=== PATIENT | female | born 1935 | race Hispanic/Latino ===

== ENCOUNTER 2017-04-16 07:44 | Inpatient (IN) | payer BC, MEDICARE ==
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
[2017-04-16 08:24] LABS: BASO # 0.02 K/mm3 (0.0-2.0); BASO % 0.4 % (0.0-3.0); EOS # 0.1 (0.0-0.7); EOS % 2.5 % (1.5-5.0); GRAN # 3.86 (1.4-6.5); HEMATOCRIT 34.7 % (36.0-48.0); LYMPH # 1.2 (1.2-3.4); LYMPH % 21.1 % (22.0-35.0); MEAN CELL VOLUME 88.5 fl (80.0-105.0); MEAN CORPUSCULAR HEMOGLOBIN 30.9 pg (25.0-35.0); MEAN CORPUSCULAR HGB CONC 34.9 g/dl (31.0-37.0); MEAN PLATELET VOLUME 11.6 fl (7.0-11.0); MONO # 0.4 (0.1-0.6); RED CELL DISTRIBUTION WIDTH 12.4 % (11.5-14.5); WHITE BLOOD COUNT 5.6 10^3/ul (4.5-11.0)
[2017-04-16 08:27] LABS: ALB/GLOB RATIO 1.3 (1.1-1.8); ALKALINE PHOSPHATASE 70 U/L (38-126); ALT/SGPT 24 U/L (7-56); AST/SGOT 23 U/L (14-36); BILIRUBIN,TOTAL 0.7 mg/dL (0.2-1.3); BLOOD UREA NITROGEN 17 mg/dL (7-21); CALCIUM 9.7 mg/dL (8.4-10.5); CARBON DIOXIDE 27 mmol/L (21-33); CHLORIDE 104 mmol/L (98-107); GFR AFRICAN-AMERICAN > 60; GLUCOSE,RANDOM 152 mg/dL (70-110); POTASSIUM 3.5 mmol/L (3.6-5.0); SODIUM 141 mmol/L (132-148); TOTAL PROTEIN 7.7 g/dL (5.8-8.3)
[2017-04-16 08:33] LABS: INR 1.11 (0.93-1.08); PARTIAL THROMBOPLASTIN TIME 25.4 Seconds (25.1-36.5)
--- NOTE | 2017-04-16 09:53 | RAD ---
PROCEDURE: Pelvis, right hip HISTORY: fall COMPARISON: April 16, 2017. TECHNIQUE: Standard protocol for this study/examination. FINDINGS: Comminuted fracture through the greater and lesser trochanters and intertrochanteric region. Preservation of femoral and acetabular relationship. No pelvic ring abnormalities. IMPRESSION: Acute, comminuted intratrochanteric fracture proximal right femur.
--- NOTE | 2017-04-16 09:54 | RAD ---
PROCEDURE: Right femur HISTORY: fall COMPARISON: April 16, 2017. TECHNIQUE: Standard protocol for this study/examination. FINDINGS: Comminuted intertrochanteric fracture. Possible avulsion fracture of the greater trochanter. Preserved femoral acetabular relationship. No distal femoral abnormalities. IMPRESSION: Acute and comminuted intratrochanteric fracture proximal right femur
--- NOTE | 2017-04-16 09:55 | RAD ---
PROCEDURE: CHEST RADIOGRAPH, 1 VIEW HISTORY: preop COMPARISON: 04/06/2013. FINDINGS: LUNGS: Clear. PLEURA: No pneumothorax or pleural fluid seen. CARDIOVASCULAR: No radiographic findings to suggest acute or significant cardiovascular disease. OSSEOUS STRUCTURES: No significant abnormalities. VISUALIZED UPPER ABDOMEN: Normal. OTHER FINDINGS: None. IMPRESSION: No active disease. No acute/significant interval changes.
[2017-04-16 15:38] VITALS: BMI 23.7
[2017-04-16] MEDS ORDERED: Pneumococcal 23-Valent Vaccine IM ONE (15:38)
[2017-04-16] MEDS ORDERED: Influenza Vaccine 60 mcg/0.5 mL SYR (4YR UP) IM ONE (15:38)
[2017-04-16] MEDS ORDERED: Potassium Chloride 20 mEq ER Tab PO ONE (17:04)
--- NOTE | 2017-04-17 00:14 | CARD ---
APPROVED REPORT EKG Measurement Heart [id number] <Conclusion> Normal sinus rhythm Nonspecific ST and T wave abnormality Abnormal ECG
[2017-04-17 02:23] LABS: PH,URINE 6.5 (4.7-8.0); URINE BILIRUBIN NEGATIVE (NEGATIVE); URINE BLOOD NEGATIVE (NEGATIVE); URINE GLUCOSE (UA) 100 mg/dL (NEGATIVE); URINE KETONE 15 mg/dL (NEGATIVE); URINE LEUKOCYTE ESTERASE NEGATIVE Leu/uL (NEGATIVE); URINE PROTEIN TRACE mg/dL (<30 mg/dL)
[2017-04-17 02:26] LABS: URINE APPEARANCE CLEAR (CLEAR); URINE COLOR YELLOW (YELLOW)
--- NOTE | 2017-04-17 02:30 | CON ---
DATE: ORTHOPEDIC CONSULTATION LOCATION: Room #568, bed #1. HISTORY OF PRESENT ILLNESS: An 81-year-old female, slipped and fell today and sustained a displaced base of the neck high intertrochanteric fracture of her right hip. She had no loss of consciousness. Dr. Alejandro and Dr. Domínguez cleared the patient as well as Dr. Rey, and we can perform pinning of her right intertrochanteric fracture with Affixus nail tomorrow. This will help to stabilize the base of the neck fracture better than the standard peritrochanteric fernando. I explained everything to the family and the nephew, who is here, and we will perform the surgery at 7:30 on 04/17/2017 to get her moving. FINAL DIAGNOSIS: Displaced comminuted high intertrochanteric fracture of the right hip. Derek Kraus DO
[2017-04-17 02:37] LABS: URINE EPITHELIAL CELLS 0 - 2 /hpf (0-5); URINE RBC 0 - 2 /hpf (0-2); URINE WBC 0 - 2 /hpf (0-6)
--- NOTE | 2017-04-17 03:24 | CON ---
DATE: 04/16/2017 SERVICE: Cardiology. REASON FOR CONSULTATION: Preop evaluation, risk stratification for OR internal fixation for right hip fracture, status post fall. BRIEF CLINICAL HISTORY: This is an 81-year-old female with past medical history significant for hypertension, diabetes, and dementia, who fell down, had mechanical fall and sustained fracture of the hip, will require OR internal fixation. The patient denies any chest pain, shortness of breath, or any palpitation. PAST MEDICAL HISTORY: Significant for dementia, forgetfulness, questionable history of hypertension, diabetes, also history of gastroesophageal reflux, history of asymptomatic gallstone, history of stone in the right ureter in the past, admitted after mechanical fall and fracture of the right hip requiring OR internal fixation. Previous cardiac workup as follows: The patient had a stress test on 04/01/2013, which reported essentially normal, ejection fraction 63%. The patient had also echocardiography on 04/01/2013, which reported tricuspid regurgitation, mild tricuspid regurgitation, right ventricular systolic pressure of 30 to 40 mmHg, left ventricular ejection fraction 50% to 55%, mild-to moderate hypokinesis in the inferior wall , Doppler consistent with grade 1 diastolic dysfunction. CURRENT MEDICATION: It was reported, no medication. In the previous chart, it is mentioned, the patient was taking metoprolol and aspirin. ALLERGIES: NO KNOWN DRUG ALLERGIES. SOCIAL HISTORY: Denies any history of smoking, tobacco, or alcohol abuse. REVIEW OF SYSTEMS: As per HPI. PHYSICAL EXAMINATION: As follows; VITAL SIGNS: Temperature afebrile, heart rate 73, and blood pressure 135/65. HEENT: PERRLA. Extraocular muscles intact. NECK: Supple. No carotid bruits or thyromegaly. CHEST: Clear to auscultation. HEART: S1 and S2 regular. ABDOMEN: Soft. EXTREMITIES: Clubbing and cyanosis negative. LABORATORY DATA: Blood workup as follows: WBC 5.6, hemoglobin 12.1, hematocrit 34.7, and platelet count 152. Chemistry showed sodium 141, potassium 3.5, chloride 104, carbon dioxide 23, anion gap of 17, BUN 14, creatinine 0.7. EKG done this morning does show normal sinus, nonspecific ST-T changes noted. IMPRESSION: Status post fall, status post fracture of hip requiring open reduction internal fixation; questionable history of hypertension; questionable history of diabetic, but apparently not on medication, blood sugar elevated, is a diabetic. The patient has dementia. Previous cardiac noninvasive workup was negative, stress test was negative on 04/01/2013, and echo also showed preserved left ventricular function. No significant valvular stenosis noted. In view of above risk/benefit ratio, it is in interest of the patient to have surgery done for early mobilization. The patient will get the benefit from early mobilization. No evidence of acute ischemia, no evidence of congestive heart failure, no evidence of arrhythmia, so no absolute contraindication for surgery, like as I mentioned, the patient will get the benefit from early mobilization and subsequent surgery. We will monitor heart rate and blood pressure, supplement electrolytes, and we will put low-dose beta noel and do the lipid profile, TSH, and hemoglobin A1c. Thank you, Dr. Rey, for providing me the opportunity in taking care of the patient, Stephanie Osorio. We will follow with you. Trey Alejandro MD MTDTrevon
[2017-04-17 06:00] LABS: BASO # 0.01 K/mm3 (0.0-2.0); BASO % 0.1 % (0.0-3.0); GRAN # 7.68 (1.4-6.5); GRAN % 84.6 % (50.0-68.0); HEMATOCRIT 30.7 % (36.0-48.0); LYMPH # 0.7 (1.2-3.4); LYMPH % 7.2 % (22.0-35.0); MEAN CELL VOLUME 88.7 fl (80.0-105.0); MEAN CORPUSCULAR HEMOGLOBIN 30.1 pg (25.0-35.0); MEAN CORPUSCULAR HGB CONC 33.9 g/dl (31.0-37.0); MEAN PLATELET VOLUME 11.8 fl (7.0-11.0); MONO # 0.7 (0.1-0.6); MONO % 8.1 % (1.0-6.0); RED CELL DISTRIBUTION WIDTH 12.5 % (11.5-14.5); WHITE BLOOD COUNT 9.1 10^3/ul (4.5-11.0)
[2017-04-17 06:59] LABS: ALB/GLOB RATIO 1.2 (1.1-1.8); ALKALINE PHOSPHATASE 56 U/L (38-126); ALT/SGPT 23 U/L (7-56); AST/SGOT 25 U/L (14-36); BLOOD UREA NITROGEN 15 mg/dL (7-21); CALCIUM 9.5 mg/dL (8.4-10.5); CARBON DIOXIDE 28 mmol/L (21-33); CHLORIDE 106 mmol/L (98-107); CHOLESTEROL 136 mg/dL (130-200); GFR AFRICAN-AMERICAN > 60; GLUCOSE,RANDOM 191 mg/dL (70-110); PHOSPHOROUS 3.2 mg/dL (2.5-4.5); POTASSIUM 4.3 mmol/L (3.6-5.0); SODIUM 142 mmol/L (132-148); TOTAL PROTEIN 6.8 g/dL (5.8-8.3)
[2017-04-17] MEDS ORDERED: Bupivacaine 0.5% Inj(30mL) ONE (07:31)
[2017-04-17] MEDS ORDERED: Phenylephrine 10 mg/ml Inj ONE (07:41)
[2017-04-17] MEDS ORDERED: Rocuronium 10 mg/ml (5 ml) ONE (07:41)
[2017-04-17] MEDS ORDERED: Propofol 10 mg/ml Inj (20 ML) ONE (07:41)
[2017-04-17] MEDS ORDERED: ePHEDrine 50 mg/ml Inj ONE (08:11)
[2017-04-17] MEDS ORDERED: Neostigmine Methylsulfate 3mg/3ml Syringe IV ONE (08:57)
[2017-04-17] MEDS ORDERED: Oxycodone/Acetaminophen 5/325 mg Tab PO PRN ×2 (09:26)
[2017-04-17] MEDS ORDERED: HYDROmorphone 0.5 mg/0.5 ml ISec IVP PRN (09:42)
[2017-04-17] MEDS ORDERED: Lactated Ringer's 1,000 ML IV SCH (09:45)
[2017-04-17] MEDS ORDERED: HYDROmorphone 0.5 mg/0.5 ml ISec ONE ×2 (10:00→10:42)
[2017-04-17] MEDS ORDERED: Enoxaparin 30 mg Syringe SC SCH (10:00)
[2017-04-17] MEDS ORDERED: HYDROmorphone 0.5 mg/0.5 ml ISec IVP ONE ×2 (10:00→10:40)
[2017-04-17 10:22] LABS: BLOOD UREA NITROGEN 15 mg/dL (7-21); CALCIUM 9.2 mg/dL (8.4-10.5); CARBON DIOXIDE 25 mmol/L (21-33); CHLORIDE 106 mmol/L (98-107); GFR AFRICAN-AMERICAN > 60; GLUCOSE,RANDOM 187 mg/dL (70-110); POTASSIUM 4.2 mmol/L (3.6-5.0); SODIUM 143 mmol/L (132-148)
--- NOTE | 2017-04-17 11:17 | RAD ---
PROCEDURE: Fluoroscopy up to 1 hour HISTORY: ORIF RT HIP COMPARISON: TECHNIQUE: Fluoroscopy was provided in the operating room. 56 seconds of fluoro time. Five images were submitted FINDINGS: The study shows placement of a compression screw and fernando in the right hip. There is anatomic alignment IMPRESSION: As above
--- NOTE | 2017-04-17 13:19 | PN ---
DATE: 04/17/2017 REASON FOR CONSULTATION AND FOLLOWUP: Preoperative evaluation, risk stratification for internal fixation of right hip fracture, status post fall. SUBJECTIVE: The patient on way to the OR, was seen in the holding area. Denies any chest pain, shortness of breath, or any palpitation. Nephew is at the bedside. OBJECTIVE/PHYSICAL EXAMINATION: As follows: GENERAL: Not in apparent distress. VITAL SIGNS: Temperature is afebrile, heart rate is 82, and blood pressure is 124/80. HEENT: PERRLA. Extraocular muscles are intact. NECK: Supple. No carotid bruits or thyromegaly. CHEST: Clear to auscultation. HEART: S1 and S2 regular. ABDOMEN: Soft. EXTREMITIES: Clubbing and cyanosis negative. LABORATORY DATA: Blood workup: WBC of 9.1, hemoglobin of 10.4, hematocrit of 30.7, and platelet count of 142. Chemistry shows sodium of 142, potassium of 4.2, chloride of 106, carbon dioxide of 28, anion gap of 12, BUN of 15, and creatinine of 0.8. Random sugar of 191, calcium of 9.5, phosphorus of 3.2, and magnesium of 2. Total bilirubin of 1. AST of 25, ALT of 23, and alkaline phosphates of 56, TSH of 3.33. Triglycerides of 55, cholesterol of 136, LDL of 78, and HDL of 42. IMPRESSION: Status post fall when the patient was sweeping the floor and picking up the leaf outside the home, fell down and sustained right hip fracture. History as mentioned history of forgetfulness, history of hypertension, diabetes, history of gastroesophageal reflux, and history of asymptomatic gallstone. Electrocardiogram probably benign and no evidence of any arrhythmia, congestive heart failure, or angina. The patient is cleared from Cardiology point of view. The patient had normal stress test on 04/01/2013, which was essentially normal ejection fraction of 63%. The patient also had echocardiography four years ago on 04/01/2013, reported tricuspid regurgitation, mitral regurgitation, and right ventricular systolic pressure 30 to 40 mmHg. RECOMMENDATIONS: The patient is clear to go from cardiac point of view. Continue preoperative beta-noel. We will see postop and we will monitor H and H and lab in the morning. We will get an echo to assess LV function and fluid status and manage the fluid. Continue postop enoxaparin for DVT prophylaxis. We will follow with you. We will check magnesium and phosphatase tomorrow. Thank you Dr. Kraus for providing us the opportunity in taking care of the patient, Jo. Trey Alejandro MD
[2017-04-17] MEDS ORDERED: ceFAZolin 1 gm in NS 1 GM/100 ML BAG IVPB SCH ×2 (16:18→20:27)
--- NOTE | 2017-04-17 18:32 | HP ---
HISTORY OF PRESENT ILLNESS: Stephanie Osorio was admitted to the hospital on 04/16/2017 for a fall at home. She sustained a fracture of her right hip, having a base of the neck fracture, displaced and comminuted that needs open reduction internal fixation. She was admitted through the emergency room. She has no significant medical history. She was cleared medically by Dr. Alejandro and Dr. Rey. Hematologic state is fine; hemoglobin is 12, hematocrit 34.7, white count is 5.6. She ambulates at home, lives with nephew, and has a walker. The heart and lungs are within normal limits. No abdominal pain. No signs of cancer. No dysuria. No infections. and Dr. Alejandro saw the patient and cleared her for surgery, and Dr. Rey also knows about the patient and said she will do fine and she could have her surgery. FINAL DIAGNOSIS: Displaced fracture, right hip. Derek Kraus DO MTDD
--- NOTE | 2017-04-17 21:11 | OP ---
PROCEDURE DATE: 04/17/2017 PREOPERATIVE DIAGNOSIS: Comminuted high intertrochanteric basilar neck fracture of the right hip with displacements. POSTOPERATIVE DIAGNOSIS: Comminuted high intertrochanteric basilar neck fracture of the right hip with displacements. PROCEDURE: Open reduction and internal fixation with a [employer] Affixus nail, utilizing a nail that was 125 mm angled, 180 mm length and 11 mm wide, and the lag screw was 90 mm long and the hip screw was antirotation screw was 85 mm long and one locking screw distally 36 mm x 6 mm. SURGEON: Dr. Derek Kraus. PARQUETRY LAYER SURGEON: Arnel. TYPE OF ANESTHESIA: General endotracheal tube. DESCRIPTION OF PROCEDURE: The patient was taken to the OR, right hip prepped and draped in a sterile fashion at the fracture table. Gentle traction was done to reduce the fracture on both the AP and lateral projection. Then we decided to use the Affixus nail from [employer] as this was unstable fracture and there is a chance that the femoral head could rotate if I did not have an antirotation screw, so I decided to have an antirotation screw. Once the patient was prepped and draped, we inserted guidewire to the greater trochanter distally to go into shaft, over reamed the proximal femur with a 16 mm reamer for 7 cm, then inserted the 180 mm long IM nail from [employer] Affixus nail that was set at 125 degree angle. Once this was done and the nail was inserted, with the help of the jig, we could put a guidewire into the femoral head and neck in line for the proposed lag screw and the antirotation screw. We put in the lag screw of 190 mm long after we reamed it with a drill to go subchondral, then put in the antirotation screw and locked the nail proximally. I took the hardware off and then locked it distally with a 6 mm wide, 36 mm long screw dynamic fixation distally. X-ray showed good position of the hardware and the fracture was reduced prior to locking it distally. Three wounds were closed in layers, 0-Vicryl for the deep layer, 2-0 Vicryl subcutaneous tissue, and 3-0 nylon for the skin. The patient was taken to the recovery room in good condition. Derek Kraus DO
--- NOTE | 2017-04-18 00:47 | PN ---
DATE: 04/17/2017 SUBJECTIVE: The patient was seen this Sunday, late evening, in room 572, bed #1 with her niece at the bedside. Having been once to medical followup for sometime, she seems quite comfortable, recognizes me, and is in good spirits. Hip procedure was done earlier today by Dr. Derek Kraus. The patient is planning to be in the hospital for an additional 2 days or so and then go to [facility]. PHYSICAL EXAMINATION: GENERAL: She is awake and alert, answers appropriately. Her exam is essentially unremarkable. LUNGS: Show good aeration. ABDOMEN: Soft. EXTREMITIES: Show no edema. IMPRESSION: Hip fracture, status post fall at home. PLAN: Continue current regimen per orthopedist. Dr. Reed will see the patient again tomorrow. We will follow the lead of orthopedist regarding followup care. Deshaun Rey MD
[2017-04-18 08:14] LABS: HEMATOCRIT 24.8 % (36.0-48.0); MEAN CELL VOLUME 89.9 fl (80.0-105.0); MEAN CORPUSCULAR HEMOGLOBIN 30.1 pg (25.0-35.0); MEAN CORPUSCULAR HGB CONC 33.5 g/dl (31.0-37.0); RED CELL DISTRIBUTION WIDTH 12.7 % (11.5-14.5); WHITE BLOOD COUNT 8.1 10^3/ul (4.5-11.0)
[2017-04-18 08:24] LABS: BLOOD UREA NITROGEN 16 mg/dL (7-21); CALCIUM 9.2 mg/dL (8.4-10.5); CARBON DIOXIDE 28 mmol/L (21-33); CHLORIDE 106 mmol/L (98-107); GFR AFRICAN-AMERICAN > 60; GLUCOSE,RANDOM 148 mg/dL (70-110); MAGNESIUM 2.1 mg/dL (1.7-2.2); PHOSPHOROUS 2.6 mg/dL (2.5-4.5); POTASSIUM 4.3 mmol/L (3.6-5.0); SODIUM 141 mmol/L (132-148)
[2017-04-18] MEDS: Enoxaparin 30 mg Syringe SC SCH (09:45)
--- NOTE | 2017-04-18 14:37 | PN ---
DATE: 04/18/2017 REASON FOR CONSULTATION AND FOLLOWUP: Preoperative evaluation, now postoperative followup, status post OR internal fixation right hip. SUBJECTIVE: The patient denies any chest pain, shortness of breath, or any palpitation. Being changed the bed. PHYSICAL EXAMINATION: GENERAL: Not in apparent distress, lying flat in the bed. VITAL SIGNS: Temperature afebrile, heart rate 85, and blood pressure 115/88. HEENT: PERRLA. Extraocular muscles intact. NECK: Supple. No carotid bruits or thyromegaly. CHEST: Clear to auscultation. HEART: S1 and S2, regular. ABDOMEN: Soft. EXTREMITIES: Clubbing and cyanosis negative. LABORATORY DATA: WBC 8.1, hemoglobin 8.3, hematocrit 24.8, and platelet count 123. Chemistry shows sodium 140, potassium 4.2, chloride 106, carbon dioxide 28, anion gap of 11, BUN 16, and creatinine 0.8. IMPRESSION: Postoperative anemia, status post fall, status post fracture of the right hip, status post open reduction and internal fixation. RECOMMENDATION: Continue preoperative beta-noel. We will give 1 unit of packed RBC. We will get echo to assess LV function. Enoxaparin is started postop to prevent DVT. We will follow with you. Repeat H and H tomorrow. Thank you Dr. Kraus/Dr. Rey for providing us the opportunity in taking care of the patient, Stephanie Osorio. Trey Alejandro MD
--- NOTE | 2017-04-18 17:41 | CARD ---
APPROVED REPORT EXAM: Two-dimensional and M-mode echocardiogram with Doppler and color Doppler. INDICATION POST 0P/LV FX 2D DIMENSIONS Left Atrium (2D)3.8 (1.6-4.0cm)IVSd1.1 (0.7-1.1cm) LVDd4.6 (3.9-5.9cm)PWd1.1 (0.7-1.1cm) LVDs3.0 (2.5-4.0cm)FS (%) 34.8 % LVEF (%)64.1 (>50%) M-Mode DIMENSIONS Aortic Root2.40 (2.2-3.7cm)Aortic Cusp Exc.1.80 (1.5-2.0cm) Aortic Valve AoV Peak Pjmpuivp616.0cm/Cody Peak GR.7mmHg Mitral Valve MV E Ojkgnxlf35.5cm/sMV A Oqovqnmr132.0cm/sE/A ratio0.7 TDI E/Lateral E'0.0E/Medial E'0.0 Tricuspid Valve TR Peak Yclpwqpv498yq/sRAP [id number] Peak Gr.37mmHg [id number] LEFT VENTRICLE The left ventricle is normal size. There is normal left ventricular wall thickness. The left ventricular function is normal.EF-60-65% There is normal LV segmental wall motion. Transmitral Doppler flow pattern is Grade III-reversible restrictive diastolic dysfunction. No left ventricle thrombus noted on this study. There is no ventricular septal defect visualized. There is no left ventricular aneurysm. There is no mass noted in the left ventricle. RIGHT VENTRICLE The right ventricle is normal size. There is normal right ventricular wall thickness. The right ventricular systolic function is normal. ATRIA The left atrium is moderately dilated. The right atrium size is normal. The interatrial septum is intact with no evidence for an atrial septal defect. AORTIC VALVE The aortic valve is thickened but opens well. There is trace aortic regurgitation. There is no aortic valvular stenosis. There is no aortic valvular vegetation. MITRAL VALVE The mitral valve is calcified but opens well. Mitral regurgitation is moderate. There is no mitral valve stenosis. There is no evidence of mitral valve prolapse. TRICUSPID VALVE The tricuspid valve leaflets are thickened , but open well. There is moderate tricuspid regurgitation.RVSP-47 mmof Hg. There is no tricuspid valve stenosis. There is no tricuspid valve prolapse or vegetation. PULMONIC VALVE The pulmonic valve is borderline thickened. There is trace pulmonic valvular regurgitation. There is no pulmonic valvular stenosis. GREAT VESSELS The aortic root is normal in size. The ascending aorta is normal in size. The pulmonary artery is normal. The IVC is normal in size and collapses >50% with inspiration. PERICARDIAL EFFUSION There is no pleural effusion. There is no pericardial effusion. <Conclusion> There is normal left ventricular wall thickness. The left ventricular function is normal.EF-60-65% There is trace aortic regurgitation. Mitral regurgitation is moderate. There is moderate tricuspid regurgitation.RVSP-47 mmof Hg. There is trace pulmonic valvular regurgitation. The IVC is normal in size and collapses >50% with inspiration. There is no pericardial effusion.
[2017-04-19] MEDS: Sodium Chloride 0.45% 500 ML IV SCH ×2 (04:50→14:23)
[2017-04-19 06:59] LABS: HEMATOCRIT 27.7 % (36.0-48.0); MEAN CELL VOLUME 85.5 fl (80.0-105.0); MEAN CORPUSCULAR HEMOGLOBIN 28.7 pg (25.0-35.0); MEAN CORPUSCULAR HGB CONC 33.6 g/dl (31.0-37.0); MEAN PLATELET VOLUME 11.5 fl (7.0-11.0); RED CELL DISTRIBUTION WIDTH 14.8 % (11.5-14.5); WHITE BLOOD COUNT 8.4 10^3/ul (4.5-11.0)
[2017-04-19 07:46] LABS: BLOOD UREA NITROGEN 19 mg/dL (7-21); CALCIUM 9.1 mg/dL (8.4-10.5); CARBON DIOXIDE 27 mmol/L (21-33); CHLORIDE 104 mmol/L (98-107); GFR AFRICAN-AMERICAN > 60; GLUCOSE,RANDOM 187 mg/dL (70-110); MAGNESIUM 2.1 mg/dL (1.7-2.2); PHOSPHOROUS 1.9 mg/dL (2.5-4.5); POTASSIUM 3.7 mmol/L (3.6-5.0); SODIUM 140 mmol/L (132-148)
--- NOTE | 2017-04-19 08:24 | PN ---
DATE: 04/18/2017 UPDATED REPORT. SUBJECTIVE: First day postop, she is doing very well with the right hip fracture. She we will need 1 unit blood ordered by Dr. Alejandro for 8.3 hemoglobin. Wound is dry. We will going to get her up out of bed and encourage her to sit on a chair, ambulate with a walker and then she will have to go to subacute rehab for couple of weeks though she is in more independent, otherwise she is doing very well. We will follow the H and H. Derek Kraus DO
[2017-04-19] MEDS: Enoxaparin 30 mg Syringe SC SCH (10:49)
--- NOTE | 2017-04-19 22:15 | PN ---
DATE: 04/19/2017 LOCATION: The patient is in room 574, bed 1. REASON FOR CONSULTATION AND FOLLOWUP: Preop evaluation from cardiac point of view and postop followup, status post internal fixation of right hip. SUBJECTIVE: The patient is lying comfortably in bed without any chest pain, shortness of breath or palpitation. PHYSICAL EXAMINATION VITAL SIGNS: Blood pressure is 133/58, respirations 20, pulse 81, and temperature 98.7. HEENT: Head is normocephalic. Eyes; pupils are normal. Conjunctivae slightly pale. NECK: JVP is low. Carotids are equal. THORAX: AP diameter normal. LUNGS: Clear. CARDIOVASCULAR: S1 and S2. ABDOMEN: Soft and nontender. No organomegaly. EXTREMITIES: No clubbing. No cyanosis. LABORATORY DATA: WBC 8.4, hemoglobin 9.3, hematocrit 27.7, and platelets 116, yesterday platelet was 123. Sodium 140, potassium 3.7, BUN 19, creatinine 0.8, random sugar 145, calcium 9.1, phosphorus 1.9, and magnesium 2.1. DIAGNOSES: Postop anemia, status post fall, status post fracture of the right hip, status post open reduction and internal fixation. PLAN: The patient is on metoprolol 25 mg b.i.d. and Lovenox 30 mg subcutaneous daily. Clinically, cardiac status is stable. We will repeat CBC, SMA-7, magnesium and phosphorus in the morning and we will follow with you closely. Trey Domínguez MD
--- NOTE | 2017-04-20 00:05 | PN ---
DATE: 04/19/2017 SUBJECTIVE: The patient seen this evening in room 574, bed 1. She is in bed, comfortable, in no acute distress. She is fully aware that she is scheduled tomorrow for transfer to [facility] rehab facility where she will continued to be seen by Orthopedist, Dr. Derek Kraus. She is awake, alert, in good spirits, recognizes me, despite talkative and noticeably hard of hearing. Discontnue IV fluids. Discontinue IV and prepare for discharge to [facility]. Deshaun Rey MD MTDD
[2017-04-20 07:05] LABS: HEMATOCRIT 24.8 % (36.0-48.0); MEAN CELL VOLUME 84.9 fl (80.0-105.0); MEAN CORPUSCULAR HEMOGLOBIN 29.1 pg (25.0-35.0); MEAN CORPUSCULAR HGB CONC 34.3 g/dl (31.0-37.0); MEAN PLATELET VOLUME 11.8 fl (7.0-11.0); RED CELL DISTRIBUTION WIDTH 14.1 % (11.5-14.5); WHITE BLOOD COUNT 6.7 10^3/ul (4.5-11.0)
[2017-04-20 07:35] LABS: MAGNESIUM 1.9 mg/dL (1.7-2.2); PHOSPHOROUS 2.2 mg/dL (2.5-4.5)
[2017-04-20 09:22] LABS: BLOOD UREA NITROGEN 17 mg/dL (7-21); CALCIUM 8.8 mg/dL (8.4-10.5); CARBON DIOXIDE 25 mmol/L (21-33); CHLORIDE 105 mmol/L (98-107); GFR AFRICAN-AMERICAN > 60; GLUCOSE,RANDOM 125 mg/dL (70-110); POTASSIUM 3.7 mmol/L (3.6-5.0); SODIUM 138 mmol/L (132-148)
[2017-04-20] MEDS ORDERED: Potassium Phosphate 15 MMOLE in Dextrose 5% In Water 250 ML IVPB ONE (11:09)
[2017-04-20] MEDS: Enoxaparin 30 mg Syringe SC SCH (13:06)
--- NOTE | 2017-04-20 13:09 | PN ---
DATE: 04/20/2017 LOCATION: The patient is in room 575, bed 1. REASON FOR CONSULTATION AND FOLLOWUP: Preop evaluation from cardiac point of view and postop followup, status post internal fixation of the right hip. SUBJECTIVE: The patient is lying in bed comfortably without any cardiac symptoms like chest pain, shortness of breath or palpitation. PHYSICAL EXAMINATION: VITAL SIGNS: Blood pressure is 132/66, respirations are 18, pulse is 73, and temperature is 98.6. HEENT: Head is normocephalic. Eyes; pupils are normal. Conjunctivae slightly pale. NECK: JVP is low. Carotids are equal. THORAX: AP diameter normal. LUNGS: Clear. CARDIOVASCULAR: S1 and S2. ABDOMEN: Soft. No tenderness. No organomegaly. EXTREMITIES: No clubbing. No cyanosis. LABORATORY DATA: WBC 6.7, hemoglobin 8.5, hematocrit 24.8, and platelets 128. Sodium 138, potassium 3.7, BUN 17, creatinine 0.6, random glucose 125, calcium 8.8, magnesium 1.9, and phosphorus 2.2. DIAGNOSES: Postop anemia, status post fall, status post fracture of the right hip, status post open reduction internal fixation. PLAN: The patient is getting metoprolol 25 b.i.d. and Lovenox 30 mg subcu daily. We will give K-Phos IV because of low phosphorous level and repeat SMA-7, CBC, magnesium, and phosphorus in the morning. We will continue to follow. Trey Domínguez MD
[2017-04-20 18:52] VITALS: BP 119/76; PULSE 73; RESP 16; TEMP 98.4; O2SAT 96
--- NOTE | 2017-04-22 14:30 | DS ---
HISTORY OF PRESENT ILLNESS: This is an 81-year-old woman who is known for several years with a rather limited past medical history with some reported hypertension, diabetes, and mild memory forgetfulness issues, but had a fall and sustained a fracture of the hip. She came to the emergency room and was seen by her orthopedist Dr. Derek Kraus. She is cleared by Cardiology Dr. Alejandro based on the stress test in 2012 with a normal ejection fraction and unremarkable echo. She went to the operating room by Dr. Kraus, the procedure was tolerated well. Postoperative course was essentially uneventful. The patient was awake, alert, and clear. Her family (her niece) was in closed attendance. Arrangements were made for her transfer to [facility] for rehab with a possibility of long-term stay after that. FINAL DISCHARGE DIAGNOSES: 1. Fracture of right hip (intratrochanteric proximal femur). 2. Mild memory loss and forgetfulness. 3. Possible distant history of hypertension and reported diabetes, but the patient on no current medications now with normal findings on examination. PLAN: Dr. Kraus will follow the patient at [facility]. We will see her and followup after she returns home should that be the case. Deshaun Rey MD MTDD
== END 2017-04-20 18:54 | DRG 481 ==
LOC: ED 07:44 → ERH 10:05 → 5RNO 11:33 → 5RSO 17:20
PROVIDERS: ADMIT Internal Medicine; ATTEND Internal Medicine
PROC: 0QS604Z Reposition Right Upper Femur with Internal Fixation Device, Open Approach (ICD-10-PCS; principal; 2017-04-17 07:30)
PROC: 30233N1 Transfusion of Nonautologous Red Blood Cells into Peripheral Vein, Percutaneous Approach (ICD-10-PCS; 2017-04-18)
DX: S72.141A Displaced intertrochanteric fracture of right femur, initial encounter for closed fracture (principal); D62 Acute posthemorrhagic anemia; E11.9 Type 2 diabetes mellitus without complications; F03.90 Unspecified dementia, unspecified severity, without behavioral disturbance, psychotic disturbance, mood disturbance, and anxiety; I08.1 Rheumatic disorders of both mitral and tricuspid valves; I10 Essential (primary) hypertension; K21.9 Gastro-esophageal reflux disease without esophagitis; W19.XXXA Unspecified fall, initial encounter; Y92.009 Unspecified place in unspecified non-institutional (private) residence as the place of occurrence of the external cause

== ENCOUNTER 2017-07-05 12:26 | Inpatient (IN) | payer MEDICARE ==
[2017-07-05 12:37] VITALS: BMI 20.7
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
[2017-07-05 14:26] LABS: BASO # 0.01 K/mm3 (0.0-2.0); BASO % 0.2 % (0.0-3.0); EOS # 0.2 (0.0-0.7); EOS % 2.7 % (1.5-5.0); GRAN # 3.66 (1.4-6.5); GRAN % 62.7 % (50.0-68.0); HEMOGLOBIN 11.2 g/dL (12.0-16.0); LYMPH # 1.5 (1.2-3.4); LYMPH % 24.8 % (22.0-35.0); MEAN CELL VOLUME 89.5 fl (80.0-105.0); MEAN CORPUSCULAR HEMOGLOBIN 29.5 pg (25.0-35.0); MEAN CORPUSCULAR HGB CONC 32.9 g/dl (31.0-37.0); MEAN PLATELET VOLUME 11.8 fl (7.0-11.0); MONO # 0.6 (0.1-0.6); MONO % 9.6 % (1.0-6.0); RBC 3.8 10^6/uL (3.5-6.1); RED CELL DISTRIBUTION WIDTH 13.2 % (11.5-14.5); WHITE BLOOD COUNT 5.8 10^3/ul (4.5-11.0)
[2017-07-05 14:30] LABS: BLOOD UREA NITROGEN 16 mg/dL (7-21); CALCIUM 10.2 mg/dL (8.4-10.5); GFR AFRICAN-AMERICAN > 60; GFR NON-AFRICAN AMERICAN > 60
--- NOTE | 2017-07-05 14:33 | RAD ---
PROCEDURE: Pelvis and right hip HISTORY: right hip pain r/o fx COMPARISON: 06/30/2017 TECHNIQUE: Two views FINDINGS: There is a large amount of heterotopic bone inferior to the femoral neck. Compression screw and fernando in the right hip. No acute findings IMPRESSION: As above
[2017-07-05 15:18] LABS: PH,URINE 6.5 (4.7-8.0); URINE BILIRUBIN NEGATIVE (NEGATIVE); URINE BLOOD SMALL (NEGATIVE); URINE GLUCOSE (UA) NEGATIVE (NEGATIVE); URINE LEUKOCYTE ESTERASE LARGE Leu/uL (NEGATIVE); URINE PROTEIN NEGATIVE mg/dL (<30 mg/dL)
[2017-07-05 15:22] LABS: URINE APPEARANCE CLOUDY (CLEAR); URINE COLOR YELLOW (YELLOW)
[2017-07-05 15:36] LABS: URINE BACTERIA MOD (NEG); URINE RBC 0 - 2 /hpf (0-2); URINE WBC 15 - 20 /hpf (0-6)
[2017-07-05] MEDS ORDERED: cefTRIAXone 1 gm 1 GM/100 ML BAG IVPB STA (15:44)
--- NOTE | 2017-07-06 03:07 | CON ---
DATE: 07/05/2017 ORTHOPEDIC CONSULT HISTORY OF PRESENT ILLNESS: An 81-year-old female admitted through the emergency room on 07/05/2017 for weakness, frequent falls and recent right hip fracture, treated with Affixus intramedullary nail back in 04/17/2017. Fracture on the right hip is doing well by x-rays, it is not out of place, and actually has healing, being 2 months post; but she has weakness and tendency to not use to walk, so she has a higher chance of falling, which she did at home because she does have decreased ability to comprehend what is the problem. So, she may have to have a long-term placement once she is placed to a facility. FINAL DIAGNOSES: Muscle weakness, confusion, healing right hip fracture. We will try to get her into a long-term placement to decrease the burden of living alone. Derek Kraus DO
[2017-07-06] MEDS: levoFLOXacin 500 mg in D5W 500 MG/100 ML BAG IVPB SCH (17:03)
--- NOTE | 2017-07-07 10:09 | PN ---
DATE: An 81-year-old female in room 562, bed 2. The patient is being followed for profound weakness and inability to walk with a stable gait and needs physical therapy to get her strength back and balance. The therapist is going to start walking with a walker and see if they could improve her endurance and strength, but she still needs subacute rehab or long-term placement. She has a high risk of falling as she does not comprehend instructions for therapy. We will follow her closely and hopefully, reach the goals of getting her stronger and improving her balance, but she is always going to need assistance with activities of daily living. Derek Kraus DO
[2017-07-07] MEDS: levoFLOXacin 500 mg in D5W 500 MG/100 ML BAG IVPB SCH (11:09)
[2017-07-08] MEDS: levoFLOXacin 500 mg in D5W 500 MG/100 ML BAG IVPB SCH (10:57)
--- NOTE | 2017-07-08 16:08 | PN ---
DATE: 07/08/2017 SUBJECTIVE: An 81-year-old female in room 562, bed 2. Patient is improving everyday. She has more strength, more confidence, and she can do bilateral leg raise as well and so she is ambulating better with a walker. We do not continue therapy and see if she needs subacute rehab by the recommendations of therapy. The right hip fracture is doing well with the Affixus nail that is holding the fracture well. Derek Kraus DO
[2017-07-09] MEDS: levoFLOXacin 500 mg in D5W 500 MG/100 ML BAG IVPB SCH (10:17)
--- NOTE | 2017-07-09 23:14 | HP ---
HISTORY OF PRESENT ILLNESS: The patient is an 81-year-old female, who fell at home as she was reaching for something. She apparently injured her right side and her right hip. The patient is status post right hip replacement. She presented to the emergency room, was evaluated and admitted. PAST MEDICAL HISTORY: Patient is known to have past medical history positive for [id number] diabetes mellitus, which apparently was mostly diet controlled; hypertension, which is also diet controlled; and worsening senile dementia. The patient also has great difficulty hearing. SOCIAL HISTORY: She never smoked. She is nonalcoholic drinker. ALLERGIES: NO KNOWN MEDICAL ALLERGIES. MEDICATIONS: At the time of admission, she was taking no medications. REVIEW OF SYSTEMS: Otherwise negative. PHYSICAL EXAMINATION: VITAL SIGNS: Blood pressure is 130/54, heart rate is 79 and she is afebrile. HEENT: Head, eyes, ears, nose and throat is unremarkable. NECK: Supple with no lymphadenopathy, no goiter. LUNGS: Clear to auscultation and percussion. HEART: Regular. No murmurs, gallops, or rubs are appreciated. ABDOMEN: Soft and nontender. EXTREMITIES: Free of cyanosis, clubbing, or edema. There is tenderness over the right hip. NEUROLOGIC: She is awake, alert, and oriented; however, she is extremely forgetful and hard of hearing. LABORATORY DATA: Laboratory study shows white blood cell count to be 5.8, hemoglobin is 11.2, hematocrit 34.0, platelet count is 163. Potassium is 4.4, sodium is 140, blood urea nitrogen is 16, creatinine is 0.8. Urinalysis is positive for urinary tract infection with positive urine nitrites, small amount of urine blood, and large amount of leukocyte esterase. X-rays of the patient's hip were negative for fracture. PLAN: We will be requesting Dr. Kraus for consultation. He repaired the hip fracture in the past. We will treat the urinary tract infection with Rocephin, which the patient received in the emergency room, which will probably be changed to Levaquin as an inpatient and we will follow the patient closely. Derek Rey MD [facility] # [id number]
[2017-07-10] MEDS: levoFLOXacin 500 MG TAB PO SCH (09:47)
[2017-07-11] MEDS: levoFLOXacin 500 MG TAB PO SCH (10:02)
--- NOTE | 2017-07-11 12:51 | PN ---
DATE: 07/10/2017 Patient was seen this Sunday evening, in room 562, bed 2. She is awaiting transfer to the subacute rehab facility with a possibility of long-term care placement after that. I believe they are looking at same facility for both. Patient was seen on her way to the bathroom with the assistance of the nurse. She certainly recognizes me and mental status is at baseline. There is occasional slight confusion and she will need assistance in the future. We will continue current regimen, antibiotics, etc. Deshaun Rey MD MTDTrevon
[2017-07-12] MEDS: levoFLOXacin 500 MG TAB PO SCH (10:29)
[2017-07-13 07:33] VITALS: BP 132/59; PULSE 79; RESP 18; TEMP 98.6; O2SAT 97
[2017-07-13] MEDS: levoFLOXacin 500 MG TAB PO SCH (09:06)
== END 2017-07-13 17:59 | disposition home health service (06) | DRG 605 ==
LOC: ED 12:26 → ERH 15:44 → 5RNO 21:24
PROVIDERS: ADMIT Internal Medicine; ATTEND Internal Medicine
DX: S70.01XA Contusion of right hip, initial encounter (principal); E11.9 Type 2 diabetes mellitus without complications; F03.90 Unspecified dementia, unspecified severity, without behavioral disturbance, psychotic disturbance, mood disturbance, and anxiety; N39.0 Urinary tract infection, site not specified; S72.001D Fracture of unspecified part of neck of right femur, subsequent encounter for closed fracture with routine healing; M62.81 Muscle weakness (generalized); R27.0 Ataxia, unspecified; H91.90 Unspecified hearing loss, unspecified ear; I10 Essential (primary) hypertension; W18.30XA Fall on same level, unspecified, initial encounter; Y92.009 Unspecified place in unspecified non-institutional (private) residence as the place of occurrence of the external cause